=== PATIENT | male | born 1980 | race Two or more races ===

== ENCOUNTER 2023-11-05 17:32 | Inpatient (IN) | payer MEDICARE, OTHER ==
[~2023-11-05] VITALS: Ht 170.2 cm; Wt 78.1 kg
[~2023-11-05 17:32] MED LIST: AMLO-258 PO; AMLO10TA55 PO; CALC0.2521 PO; CALC667C PO; CARV3 PO; CLON0.1T2 PO; FOLI0.8T54 PO; HYDR50TA37 PO; SEVE800T7 PO
[2023-11-05 19:21] LABS: BASOPHILS % (AUTO) 0.9 % (0.0-2.0); EOSINOPHILS % (AUTO) 5.6 % (1.0-6.0); HEMATOCRIT 32.4 % (41-53); HEMOGLOBIN 10.5 g/dL (13.5-17.5); LYMPHOCYTES # (AUTO) 0.9 K/uL (1.0-4.8); LYMPHOCYTES % (AUTO) 9.3 % (22.0-44.0); MEAN CORPUSCULAR HEMOGLOBIN 31.8 pg (26.0-34.0); MEAN CORPUSCULAR HGB CONC 32.4 G/dL (31.0-37.0); MEAN CORPUSCULAR VOLUME 98 fL (80-100); MONOCYTES # (AUTO) 1.4 K/uL (0.1-1.0); MONOCYTES % (AUTO) 15.5 % (2.0-9.0); NEUTROPHILS # (AUTO) 6.3 K/uL (1.8-7.7); NEUTROPHILS % (AUTO) 68.7 % (40.0-70.0); PLATELET COUNT (AUTO) 134 K/uL (150-450); RED CELL DISTRIBUTION WIDTH 19.3 % (11.5-14.5); WHITE BLOOD COUNT (AUTO) 9.2 K/uL (4.5-11.0)
[2023-11-05 19:38] LABS: ALBUMIN 2.9 g/dL (3.4-5.0); BILIRUBIN,DIRECT 0.3 mg/dL (0.00-0.20); BILIRUBIN,TOTAL 0.6 mg/dL (0.1-1.0); CALCIUM, TOTAL 9.8 mg/dL (8.8-10.5); CREATININE 13.48 mg/dL (0.60-1.30)
[2023-11-05 19:45] LABS: POTASSIUM 6.9 mmol/L (3.5-5.1)
[2023-11-05 19:46] LABS: TROPONIN I-HIGH SENSITIVITY 140 ng/L (<76)
[2023-11-05] MEDS: MORPHINE SULFATE 4 MG/ML SYRINGE IVP ONE (19:57)
[2023-11-05] MEDS: SODIUM ZIRCONIUM CYCLOSILICATE 5 GM POWDER PACKET PO ONE (19:58)
[2023-11-05] MEDS: CALCIUM GLUCONATE 100 MG/ML 10 ML IVP ONE (20:14)
[2023-11-05] MEDS ORDERED: 0.9% SODIUM CHLORIDE 15 ML NEB SOLUTION NEB ONE (20:22)
[2023-11-05] MEDS: ALBUTEROL SULFATE 2.5 MG/0.5 ML NEB SOLUTION NEB ONE (20:24)
[2023-11-05 20:34] VITALS: PULSE 79; RESP 17; O2SAT 93
[2023-11-05 20:36] VITALS: PULSE 79; RESP 17; O2SAT 93
[2023-11-05] MEDS: DEXTROSE 50%-WATER 25 GM/50 ML SYRINGE IVP ONE (20:39)
[2023-11-05 20:56] LABS: GLUCOMETER DEV NAME(LOC) ER.7; GLUCOSE,POINT OF CARE 82 MG/DL (70-110)
[2023-11-05] MEDS: INSULIN REGULAR, HUMAN 100 UNITS/ML IVP ONE (21:35)
[2023-11-05 21:46] LABS: GLUCOMETER DEV NAME(LOC) ER.7; GLUCOSE,POINT OF CARE 100 MG/DL (70-110)
[2023-11-05] MEDS: MORPHINE SULFATE 2 MG/ML SYRINGE IVP ONE (23:17)
[2023-11-05 23:30] VITALS: BP 169/119; PULSE 80; RESP 18; TEMP 97; O2SAT 95
[2023-11-05 23:55] VITALS: BP 155/103; PULSE 73; RESP 18
[2023-11-06] VITALS (17 sets, daily range): BP systolic 149–190; BP diastolic 95–122; PULSE 80–88; RESP 18–22; TEMP 97.2–98.2; O2SAT 95–100
[2023-11-06] MEDS: CloNIDine HCL 0.1 MG TABLET PO ONE (01:40)
[2023-11-06] MEDS: MORPHINE SULFATE 2 MG/ML SYRINGE IVP ONE (05:24)
[2023-11-06 08:15] LABS: CALCIUM, TOTAL 9.4 mg/dL (8.8-10.5); CREATININE 9.11 mg/dL (0.60-1.30); POTASSIUM 4.3 mmol/L (3.5-5.1)
[2023-11-06 08:19] LABS: PHOSPHORUS 5.9 mg/dL (2.5-4.9)
[2023-11-06] MEDS: CloNIDine HCL 0.1 MG TABLET PO SCH (08:39)
[2023-11-06] MEDS: AmLODIPine BESYLATE 10 MG TABLET PO SCH (08:39)
[2023-11-06] MEDS: CARVEDILOL 3.125 MG TABLET PO SCH (08:39)
[2023-11-06] MEDS: FOLIC ACID/VIT B COMPLEX AND C TABLET PO SCH (10:19)
[2023-11-06] MEDS: SEVELAMER CARBONATE 800 MG TABLET PO SCH (10:19)
[2023-11-06] MEDS: CALCIUM ACETATE 667 MG CAPSULE PO SCH (10:19)
[2023-11-06] MEDS ORDERED: LIDOCAINE/PF 1% 2 ML VIAL IM ONE ×2 (12:00)
[2023-11-06] MEDS ORDERED: DiphenhydrAMINE HCL 50 MG/ML VIAL IVP ONE (12:00)
[2023-11-06] MEDS: CALCITRIOL 0.25 MCG CAPSULE PO SCH (12:29)
[2023-11-06] MEDS: HYDROmorphone HCL 2 MG/ML SYRINGE IVP PRN (12:29)
[2023-11-06] MEDS: HydrALAZINE HCL 50 MG TABLET PO SCH (12:31)
[2023-11-06] MEDS: OxyCODONE HCL/ACETAMINOPHEN 5-325 MG TABLET PO PRN (13:31)
[2023-11-06] MEDS: DiphenhydrAMINE HCL 50 MG/ML VIAL IVP PRN (14:44)
[2023-11-06] MEDS: LIDOCAINE/PF 1% 2 ML VIAL ID PRN (17:52)
[2023-11-06] MEDS: MORPHINE SULFATE 2 MG/ML SYRINGE IVP PRN (20:23)
[2023-11-07] VITALS (7 sets, daily range): BP systolic 135–173; BP diastolic 93–119; PULSE 78–85; RESP 18–20; TEMP 97.5–98.2; O2SAT 92–100
[2023-11-07] MEDS: DiphenhydrAMINE HCL 25 MG CAPSULE PO ONE (00:46)
[2023-11-08] VITALS (8 sets, daily range): BP systolic 145–174; BP diastolic 82–114; PULSE 67–77; RESP 18; TEMP 97.5–98.7; O2SAT 96–98
[2023-11-08 07:19] LABS: HEMOGLOBIN 11.1 g/dL (13.5-17.5); NEUTROPHILS # (AUTO) 3.7 K/uL (1.8-7.7)
[2023-11-08 07:32] LABS: CALCIUM, TOTAL 9.8 mg/dL (8.8-10.5); CREATININE 10.88 mg/dL (0.60-1.30); POTASSIUM 5.7 mmol/L (3.5-5.1)
[2023-11-08 08:02] LABS: EOSINOPHILS % (AUTO) 6.6 % (1.0-6.0); LYMPHOCYTES % (AUTO) 14.3 % (22.0-44.0); MEAN CORPUSCULAR HEMOGLOBIN 31.8 pg (26.0-34.0); MEAN CORPUSCULAR HGB CONC 32.8 G/dL (31.0-37.0); MEAN CORPUSCULAR VOLUME 97 fL (80-100); MONOCYTES # (AUTO) 1.6 K/uL (0.1-1.0); MONOCYTES % (AUTO) 23.1 % (2.0-9.0); PLATELET COUNT (AUTO) 123 K/uL (150-450); WHITE BLOOD COUNT (AUTO) 6.8 K/uL (4.5-11.0)
[2023-11-08] MEDS: HYDROmorphone HCL 2 MG/ML SYRINGE IVP PRN (08:41)
[2023-11-08] MEDS: INSULIN REGULAR, HUMAN 100 UNITS/ML SQ ONE (10:15)
[2023-11-08] MEDS: DEXTROSE 50%-WATER 25 GM/50 ML SYRINGE IVP ONE (10:15)
[2023-11-08] MEDS: BUMETANIDE 0.25 MG/ML 4 ML VIAL IVP ONE (12:33)
[2023-11-08] MEDS: HydrALAZINE HCL 20 MG/ML VIAL IVP PRN (12:57)
[2023-11-08] MEDS: SODIUM ZIRCONIUM CYCLOSILICATE 5 GM POWDER PACKET PO SCH (13:32)
[2023-11-09] VITALS (15 sets, daily range): BP systolic 150–205; BP diastolic 72–122; PULSE 73–92; RESP 18–20; TEMP 97.4–98.3; O2SAT 95–98
[2023-11-09 07:46] LABS: CALCIUM, TOTAL 10.1 mg/dL (8.8-10.5); CREATININE 12.37 mg/dL (0.60-1.30); POTASSIUM 5.3 mmol/L (3.5-5.1)
[2023-11-09] MEDS: CloNIDine HCL 0.1 MG TABLET PO SCH (08:41)
[2023-11-09] MEDS ORDERED: SODIUM CHLORIDE 0.9% 2,000 ML ONE (10:08)
[2023-11-09] MEDS ORDERED: DiphenhydrAMINE HCL 50 MG/ML VIAL IVP ONE (12:00)
[2023-11-09] MEDS ORDERED: LIDOCAINE/PF 1% 2 ML VIAL IM ONE (12:00)
[2023-11-09 12:29] LABS: TROPONIN I-HIGH SENSITIVITY 154 ng/L (<76)
[2023-11-09] MEDS: HydrALAZINE HCL 50 MG TABLET PO SCH (16:00)
[2023-11-09] MEDS: CARVEDILOL 6.25 MG TABLET PO SCH (20:17)
[2023-11-10 03:53] VITALS: BP 146/88; PULSE 87; RESP 19; TEMP 98.2; O2SAT 97
[2023-11-10 06:08] VITALS: BP 189/102; PULSE 63; RESP 20; O2SAT 96
[2023-11-10 07:50] VITALS: BP 162/116; PULSE 67
[2023-11-10 07:53] LABS: BASOPHILS % (AUTO) 1.6 % (0.0-2.0); EOSINOPHILS % (AUTO) 9.5 % (1.0-6.0); HEMATOCRIT 33.2 % (41-53); HEMOGLOBIN 10.9 g/dL (13.5-17.5); LYMPHOCYTES % (AUTO) 16.6 % (22.0-44.0); MEAN CORPUSCULAR HEMOGLOBIN 31.8 pg (26.0-34.0); MEAN CORPUSCULAR HGB CONC 32.8 G/dL (31.0-37.0); MEAN CORPUSCULAR VOLUME 97 fL (80-100); MONOCYTES # (AUTO) 1.1 K/uL (0.1-1.0); MONOCYTES % (AUTO) 18.5 % (2.0-9.0); NEUTROPHILS # (AUTO) 3.3 K/uL (1.8-7.7); NEUTROPHILS % (AUTO) 53.8 % (40.0-70.0); PLATELET COUNT (AUTO) 152 K/uL (150-450); RED BLOOD CELL COUNT(AUTO) 3.43 MIL/uL (4.50-5.90); RED CELL DISTRIBUTION WIDTH 19.2 % (11.5-14.5); WHITE BLOOD COUNT (AUTO) 6.1 K/uL (4.5-11.0)
[2023-11-10 08:12] LABS: CALCIUM, TOTAL 10.1 mg/dL (8.8-10.5); CREATININE 9.78 mg/dL (0.60-1.30); POTASSIUM 4.7 mmol/L (3.5-5.1)
[2023-11-10] MEDS: ISOSORBIDE DINITRATE 10 MG TABLET PO SCH (08:30)
[2023-11-10] MEDS: HydrALAZINE HCL 25 MG TABLET PO SCH (08:32)
[2023-11-10 11:12] VITALS: BP 163/73; PULSE 70; RESP 18; TEMP 97.4; O2SAT 96
[2023-11-10] MEDS ORDERED: ISOS10TA16 PO (13:07)
[2023-11-10] MEDS ORDERED: SODI5POW3 PO (13:07)
[2023-11-10] MEDS ORDERED: CLON0.1T2 PO (13:07)
[2023-11-10] MEDS ORDERED: AMLO-258 PO (13:07)
[2023-11-10] MEDS ORDERED: CARV6 PO (13:07)
[2023-11-10] MEDS ORDERED: PHOSLOC PO (13:07)
[2023-11-10] MEDS ORDERED: HYDR50TA36 PO (13:07)
== END 2023-11-10 18:10 | disposition home or self-care (01) | DRG 640 ==
LOC: EMS 17:32 → EDH 11-06 07:06 → 5S 11-06 09:47
PROVIDERS: ADMIT Internal Medicine; ATTEND Internal Medicine
PROC: 5A1D70Z Performance of Urinary Filtration, Intermittent, Less than 6 Hours Per Day (ICD-10-PCS; principal; 2023-11-06)
PROC: 5A1D70Z Performance of Urinary Filtration, Intermittent, Less than 6 Hours Per Day (ICD-10-PCS; 2023-11-09)
PROC: 0W9G3ZZ Drainage of Peritoneal Cavity, Percutaneous Approach (ICD-10-PCS; 2023-11-10)
DX: E87.5 Hyperkalemia (principal); I50.43 Acute on chronic combined systolic (congestive) and diastolic (congestive) heart failure; N18.6 End stage renal disease; J96.01 Acute respiratory failure with hypoxia; I13.2 Hypertensive heart and chronic kidney disease with heart failure and with stage 5 chronic kidney disease, or end stage renal disease; R18.8 Other ascites; K74.60 Unspecified cirrhosis of liver; E11.649 Type 2 diabetes mellitus with hypoglycemia without coma; D63.1 Anemia in chronic kidney disease; E11.22 Type 2 diabetes mellitus with diabetic chronic kidney disease; I08.1 Rheumatic disorders of both mitral and tricuspid valves; I16.0 Hypertensive urgency; F17.210 Nicotine dependence, cigarettes, uncomplicated; Z91.199 Patient's noncompliance with other medical treatment and regimen due to unspecified reason; Z99.2 Dependence on renal dialysis; Z79.899 Other long term (current) drug therapy
CPT/HCPCS: 49083; 71045; 76942; 80048; 80076; 82962; 83735; 83880; 84100; 84132; 84484; 85025; 85379; 87340; 90935; 93005; 93306; 99291; J0360; J0610; J1170; J1200; J1815; J2270; J3490; J7030; 36415-L1; 36415-TC; J7613

== ENCOUNTER 2023-11-19 17:12 | Inpatient (IN) | payer MEDICARE, OTHER ==
[~2023-11-19] VITALS: Ht 167.6 cm; Wt 66.6 kg
[~2023-11-19 17:12] MED LIST changes: -AMLO10TA55 PO; -CALC667C PO; -CARV3 PO; +CARV6 PO; +HYDR50TA36 PO; -HYDR50TA37 PO; +ISOS10TA16 PO; +PHOSLOC PO; +SODI5POW3 PO
[2023-11-19] MEDS ORDERED: 0.9% SODIUM CHLORIDE 10 ML SYRINGE IVP PRN (18:00)
[2023-11-19 18:29] LABS: HEMATOCRIT 35.8 % (41-53); HEMOGLOBIN 11.4 g/dL (13.5-17.5); LYMPHOCYTES # (AUTO) 1.1 K/uL (1.0-4.8); LYMPHOCYTES % (AUTO) 9.4 % (22.0-44.0); MEAN CORPUSCULAR HEMOGLOBIN 30.3 pg (26.0-34.0); MEAN CORPUSCULAR HGB CONC 31.8 G/dL (31.0-37.0); MEAN CORPUSCULAR VOLUME 95 fL (80-100); MONOCYTES # (AUTO) 1.5 K/uL (0.1-1.0); NEUTROPHILS # (AUTO) 8.3 K/uL (1.8-7.7); NEUTROPHILS % (AUTO) 73.6 % (40.0-70.0); PLATELET COUNT (AUTO) 349 K/uL (150-450); RED BLOOD CELL COUNT(AUTO) 3.76 MIL/uL (4.50-5.90); RED CELL DISTRIBUTION WIDTH 18.2 % (11.5-14.5); WHITE BLOOD COUNT (AUTO) 11.3 K/uL (4.5-11.0)
[2023-11-19 18:43] LABS: ANION GAP 16 mmol/L (8-16); CALCIUM, TOTAL 9.8 mg/dL (8.8-10.5); CARBON DIOXIDE 26 mmol/L (22-29); CHLORIDE 94 mmol/L (98-107); CREATININE 9.59 mg/dL (0.60-1.30); GLOMERULAR FILTR. RATE CALC 6 mL/min (>60); GLUCOSE,RANDOM 93 mg/dL (70-110); POTASSIUM 4.9 mmol/L (3.5-5.1); SODIUM SERUM 136 mmol/L (136-145); UREA NITROGEN, BLOOD 51 mg/dL (7-18)
[2023-11-19] MEDS: ONDANSETRON HCL 4 MG/2 ML VIAL IVP ONE ×2 (18:43→21:17)
[2023-11-19] MEDS: MORPHINE SULFATE 4 MG/ML SYRINGE IVP ONE (18:43)
[2023-11-19 18:54] LABS: ALANINE AMINOTRANSFERASE 23 U/L (12-78); ALBUMIN 3.5 g/dL (3.4-5.0); ALKALINE PHOSPHATASE 188 U/L (46-116); ASPARTATE AMINOTRANSFERASE 30 U/L (15-37); BILIRUBIN,TOTAL 0.7 mg/dL (0.1-1.0); CREATINE KINASE, TOTAL ONLY 110 U/L (39-308); TOTAL PROTEIN, SERUM 8.3 g/dL (6.4-8.2)
[2023-11-19 18:55] LABS: B-TYPE NATRIURETIC PEPTIDE > 5000 pg/mL (0-100)
[2023-11-19 18:59] LABS: TROPONIN I-HIGH SENSITIVITY 136 ng/L (<76)
[2023-11-19] MEDS: LABETALOL HCL 5 MG/ML 20 ML VIAL IVP ONE (18:59)
[2023-11-19] MEDS: SODIUM CHLORIDE 0.9% 250 ML IV ONE (19:00)
[2023-11-19] MEDS: OXYMETAZOLINE HCL 0.05% 15 ML NASAL SPRAY NASAL ONE (19:18)
[2023-11-19 19:25] LABS: COVID AG,FIA SOURCE NASAL SWAB
[2023-11-19] MEDS ORDERED: 0.9% SODIUM CHLORIDE 5 ML NEB SOLUTION NEB ONE (19:29)
[2023-11-19 19:46] LABS: INFLUENZA TYPE A NEGATIVE FOR TYPE A (NEGATIVE); INFLUENZA TYPE B NEGATIVE FOR TYPE B (NEGATIVE); SARS-COV2 (COVID) ANTIGEN,FIA Negative (Negative)
[2023-11-19] MEDS: LEVALBUTEROL 0.63 MG/3 ML NEB SOLUTION NEB ONE (20:03)
[2023-11-19 20:07] VITALS: PULSE 105; PULSE 93; RESP 22; O2SAT 93
[2023-11-19 20:18] VITALS: PULSE 110; RESP 22; O2SAT 99
[2023-11-19] MEDS: PIPERACILLIN/TAZO 3.375 GM/D5W 50 ML IV ONE (20:32)
[2023-11-19] MEDS: HYDROmorphone HCL 2 MG/ML SYRINGE IVP ONE (21:17)
[2023-11-19] MEDS ORDERED: NALOXONE HCL 1 MG/ML 2 ML SYRINGE IVP PRN (22:30)
[2023-11-19 22:33] LABS: TROPONIN I-HIGH SENSITIVITY 147 ng/L (<76)
[2023-11-19] MEDS: CARVEDILOL 6.25 MG TABLET PO ONE (22:41)
[2023-11-19] MEDS: ISOSORBIDE DINITRATE 10 MG TABLET PO ONE (22:41)
[2023-11-19] MEDS: HydrALAZINE HCL 25 MG TABLET PO ONE (22:42)
[2023-11-19] MEDS ORDERED: PIPERACILLIN SODIUM/TAZOBACTAM 0.75 GM in DEXTROSE 5%-WATER 50 ML IV PRN (23:45)
[2023-11-20] VITALS (14 sets, daily range): BP systolic 133–191; BP diastolic 65–120; PULSE 84–97; RESP 17–20; TEMP 96.8–98.6; O2SAT 95–100
[2023-11-20 06:58] LABS: EOSINOPHILS % (AUTO) 6.3 % (1.0-6.0); HEMOGLOBIN 10.9 g/dL (13.5-17.5); LYMPHOCYTES # (AUTO) 0.9 K/uL (1.0-4.8); LYMPHOCYTES % (AUTO) 11.9 % (22.0-44.0); MEAN CORPUSCULAR HEMOGLOBIN 30.7 pg (26.0-34.0); MEAN CORPUSCULAR HGB CONC 32.1 G/dL (31.0-37.0); MEAN CORPUSCULAR VOLUME 96 fL (80-100); MONOCYTES # (AUTO) 1.5 K/uL (0.1-1.0); MONOCYTES % (AUTO) 21.1 % (2.0-9.0); NEUTROPHILS # (AUTO) 4.4 K/uL (1.8-7.7); NEUTROPHILS % (AUTO) 59.7 % (40.0-70.0); PLATELET COUNT (AUTO) 291 K/uL (150-450); RED BLOOD CELL COUNT(AUTO) 3.56 MIL/uL (4.50-5.90); RED CELL DISTRIBUTION WIDTH 18.6 % (11.5-14.5); WHITE BLOOD COUNT (AUTO) 7.3 K/uL (4.5-11.0)
[2023-11-20 07:16] LABS: CALCIUM, TOTAL 9.4 mg/dL (8.8-10.5); CREATININE 10.51 mg/dL (0.60-1.30); MAGNESIUM 2.3 mg/dL (1.80-2.40); POTASSIUM 4.9 mmol/L (3.5-5.1)
[2023-11-20] MEDS: SEVELAMER CARBONATE 800 MG TABLET PO SCH (08:08)
[2023-11-20] MEDS: PIPERACILLIN SODIUM/TAZOBACTAM 2.25 GM in DEXTROSE 5%-WATER 50 ML IV SCH ×2 (08:08→18:52)
[2023-11-20] MEDS: CALCIUM ACETATE 667 MG CAPSULE PO SCH (08:08)
[2023-11-20] MEDS: CARVEDILOL 6.25 MG TABLET PO SCH (08:09)
[2023-11-20] MEDS: AmLODIPine BESYLATE 10 MG TABLET PO SCH (08:09)
[2023-11-20] MEDS: HydrALAZINE HCL 25 MG TABLET PO SCH (08:09)
[2023-11-20] MEDS: FOLIC ACID/VIT B COMPLEX AND C TABLET PO SCH (08:09)
[2023-11-20] MEDS: CloNIDine HCL 0.1 MG TABLET PO SCH (08:09)
[2023-11-20] MEDS: SODIUM ZIRCONIUM CYCLOSILICATE 5 GM POWDER PACKET PO SCH (08:10)
[2023-11-20] MEDS: ISOSORBIDE DINITRATE 10 MG TABLET PO SCH (08:10)
[2023-11-20] MEDS: CALCITRIOL 0.25 MCG CAPSULE PO SCH (08:11)
[2023-11-20] MEDS ORDERED: -POST HEMODIALYSIS NOTE- MISC SCH (09:00)
[2023-11-20] MEDS: ONDANSETRON HCL 4 MG/2 ML VIAL IVP PRN (09:38)
[2023-11-20] MEDS ORDERED: SODIUM CHLORIDE 0.9% 2,000 ML ONE (14:34)
[2023-11-20] MEDS ORDERED: DiphenhydrAMINE HCL 50 MG/ML VIAL IVP PRN (15:30)
[2023-11-20] MEDS ORDERED: DiphenhydrAMINE HCL 50 MG/ML VIAL IM ONE (22:46)
[2023-11-20] MEDS ORDERED: LIDOCAINE/PF 1% 2 ML VIAL CAUDAL ONE (22:46)
[2023-11-21] VITALS: BP 166/90; PULSE 87; RESP 19; O2SAT 98
[2023-11-21] MEDS: HEPARIN SODIUM,PORCINE 5,000 UNITS/ML VIAL SQ SCH
[2023-11-21 04:30] VITALS: BP 152/99; PULSE 83; RESP 19; O2SAT 100
[2023-11-21 08:25] LABS: ALBUMIN 2.8 g/dL (3.4-5.0); BILIRUBIN,TOTAL 0.7 mg/dL (0.1-1.0); CALCIUM, TOTAL 8.9 mg/dL (8.8-10.5); CREATININE 8.23 mg/dL (0.60-1.30); POTASSIUM 4.3 mmol/L (3.5-5.1); TOTAL PROTEIN, SERUM 7.2 g/dL (6.4-8.2)
[2023-11-21 08:33] LABS: HEMATOCRIT 33.4 % (41-53); HEMOGLOBIN 10.8 g/dL (13.5-17.5); LYMPHOCYTES # (AUTO) 0.8 K/uL (1.0-4.8); LYMPHOCYTES % (AUTO) 13.7 % (22.0-44.0); MEAN CORPUSCULAR HGB CONC 32.4 G/dL (31.0-37.0); MEAN CORPUSCULAR VOLUME 96 fL (80-100); MONOCYTES # (AUTO) 1.4 K/uL (0.1-1.0); MONOCYTES % (AUTO) 25.9 % (2.0-9.0); NEUTROPHILS # (AUTO) 2.6 K/uL (1.8-7.7); NEUTROPHILS % (AUTO) 46.4 % (40.0-70.0); PLATELET COUNT (AUTO) 280 K/uL (150-450); RED CELL DISTRIBUTION WIDTH 18.3 % (11.5-14.5); WHITE BLOOD COUNT (AUTO) 5.6 K/uL (4.5-11.0)
[2023-11-21] MEDS ORDERED: LEVO250T75 PO (10:06)
[2023-11-21] MEDS: LEVOFLOXACIN 500 MG TABLET PO ONE (11:01)
[2023-11-21] MEDS: ACETAMINOPHEN 325 MG TABLET PO PRN (11:01)
[2023-11-21] MEDS ORDERED: ISOSORBIDE DINITRATE 20 MG TABLET PO SCH (16:00)
== END 2023-11-21 13:40 | disposition home or self-care (01) | DRG 871 ==
LOC: EMS 17:15 → EDH 22:18 → 5S 23:41
PROVIDERS: ADMIT Internal Medicine; ATTEND Internal Medicine
PROC: 5A1D70Z Performance of Urinary Filtration, Intermittent, Less than 6 Hours Per Day (ICD-10-PCS; principal; 2023-11-20)
DX: A41.9 Sepsis, unspecified organism (principal); J69.0 Pneumonitis due to inhalation of food and vomit; N18.6 End stage renal disease; I12.0 Hypertensive chronic kidney disease with stage 5 chronic kidney disease or end stage renal disease; R18.8 Other ascites; E78.5 Hyperlipidemia, unspecified; K52.9 Noninfective gastroenteritis and colitis, unspecified; R79.89 Other specified abnormal findings of blood chemistry; R74.8 Abnormal levels of other serum enzymes; K74.60 Unspecified cirrhosis of liver; D63.1 Anemia in chronic kidney disease; Z20.822 Contact with and (suspected) exposure to COVID-19; Z99.2 Dependence on renal dialysis; Z83.3 Family history of diabetes mellitus; Z91.041 Radiographic dye allergy status; Z79.899 Other long term (current) drug therapy
CPT/HCPCS: 71045; 74176; 80048; 80053; 82550; 83605; 83735; 83880; 84145; 84484; 85025; 87040; 87081; 87340; 87804; 90935; 93005; 94640; 99285; J1171; J1200; J1644; J2270; J2405; J2543; J3490; J7030; J7050; J7060; 36415-L1; 36415-TC; Z7610

== ENCOUNTER → 2023-12-02 | Emergency (ER) | payer MEDICARE, OTHER ==
[~2023-12-02] VITALS: Ht 170.2 cm; Wt 64.0 kg
[~2023-12-02] MED LIST changes: -ISOS10TA16 PO; +ISOS20TA9 PO; +LEVO250T75 PO
[2023-12-02 11:56] VITALS: BP 184/121; PULSE 94; RESP 20; TEMP 98.4; O2SAT 99
[2023-12-02 12:53] LABS: BASOPHILS % (AUTO) 0.7 % (0.0-2.0); EOSINOPHILS % (AUTO) 8.2 % (1.0-6.0); HEMATOCRIT 35.4 % (41-53); HEMOGLOBIN 11.5 g/dL (13.5-17.5); LYMPHOCYTES % (AUTO) 12.7 % (22.0-44.0); MEAN CORPUSCULAR HEMOGLOBIN 30.7 pg (26.0-34.0); MEAN CORPUSCULAR HGB CONC 32.5 G/dL (31.0-37.0); MEAN CORPUSCULAR VOLUME 95 fL (80-100); MONOCYTES # (AUTO) 1.1 K/uL (0.1-1.0); MONOCYTES % (AUTO) 13.2 % (2.0-9.0); NEUTROPHILS # (AUTO) 5.3 K/uL (1.8-7.7); NEUTROPHILS % (AUTO) 65.2 % (40.0-70.0); PLATELET COUNT (AUTO) 222 K/uL (150-450); RED BLOOD CELL COUNT(AUTO) 3.75 MIL/uL (4.50-5.90); RED CELL DISTRIBUTION WIDTH 18.4 % (11.5-14.5); WHITE BLOOD COUNT (AUTO) 8.1 K/uL (4.5-11.0)
[2023-12-02 13:17] LABS: CALCIUM, TOTAL 9.1 mg/dL (8.8-10.5); CREATININE 6.88 mg/dL (0.60-1.30); POTASSIUM 4.2 mmol/L (3.5-5.1)
[2023-12-02 13:24] LABS: ALBUMIN 3.4 g/dL (3.4-5.0); BILIRUBIN,TOTAL 0.6 mg/dL (0.1-1.0); TOTAL PROTEIN, SERUM 8.1 g/dL (6.4-8.2)
== END | disposition home or self-care (01) ==
LOC: EMS 11:47
DX: T82.838A Hemorrhage due to vascular prosthetic devices, implants and grafts, initial encounter (principal); F12.90 Cannabis use, unspecified, uncomplicated; N18.6 End stage renal disease; Z91.041 Radiographic dye allergy status; Z88.8 Allergy status to other drugs, medicaments and biological substances; Z99.2 Dependence on renal dialysis; Z79.899 Other long term (current) drug therapy; Y84.1 Kidney dialysis as the cause of abnormal reaction of the patient, or of later complication, without mention of misadventure at the time of the procedure
CPT/HCPCS: 80053; 85025; 86850; 86900; 86901; 99283

== ENCOUNTER 2024-01-27 23:17 | Emergency (ER) | payer MEDICARE, OTHER ==
[~2024-01-27] VITALS: Ht 170.2 cm; Wt 60.2 kg
[~2024-01-27 23:17] MED LIST changes: -AMLO-258 PO; +AMLO10TA55 PO; +CALC667C PO; +CARV12.530 PO; -CARV6 PO; +FLUT1AER IH; -FOLI0.8T54 PO; -HYDR50TA36 PO; +HYDR50TA37 PO; +ISOS20 PO; -ISOS20TA9 PO; -LEVO250T75 PO; +ONDA4 PO; -PHOSLOC PO; -SODI5POW3 PO
[2024-01-27 23:50] VITALS: TEMP 97.7
[2024-01-28 00:32] VITALS: BP 167/81; PULSE 83; RESP 18; O2SAT 98
== END 2024-01-28 01:45 | disposition home or self-care (01) ==
LOC: EMS 23:17
DX: T82.838A Hemorrhage due to vascular prosthetic devices, implants and grafts, initial encounter (principal); J44.9 Chronic obstructive pulmonary disease, unspecified; I13.2 Hypertensive heart and chronic kidney disease with heart failure and with stage 5 chronic kidney disease, or end stage renal disease; I50.9 Heart failure, unspecified; N18.6 End stage renal disease; F12.90 Cannabis use, unspecified, uncomplicated; F17.210 Nicotine dependence, cigarettes, uncomplicated; Z88.8 Allergy status to other drugs, medicaments and biological substances; Z91.041 Radiographic dye allergy status; Z79.51 Long term (current) use of inhaled steroids; Z79.899 Other long term (current) drug therapy; Y84.1 Kidney dialysis as the cause of abnormal reaction of the patient, or of later complication, without mention of misadventure at the time of the procedure
CPT/HCPCS: 99281; Z7502

== ENCOUNTER 2024-01-31 20:16 | Inpatient (IN) | payer MEDICARE, OTHER ==
[~2024-01-31] VITALS: Ht 170.2 cm; Wt 55.5 kg
[2024-01-31] MEDS: MORPHINE SULFATE 4 MG/ML SYRINGE IVP ONE (21:44)
[2024-01-31] MEDS: DiphenhydrAMINE HCL 50 MG/ML VIAL IVP ONE (21:44)
[2024-01-31 21:54] LABS: BASOPHILS % (AUTO) 1.2 % (0.0-2.0); EOSINOPHILS % (AUTO) 5.9 % (1.0-6.0); HEMATOCRIT 29.9 % (41-53); HEMOGLOBIN 9.6 g/dL (13.5-17.5); LYMPHOCYTES # (AUTO) 1.3 K/uL (1.0-4.8); LYMPHOCYTES % (AUTO) 13.9 % (22.0-44.0); MEAN CORPUSCULAR HEMOGLOBIN 30.1 pg (26.0-34.0); MEAN CORPUSCULAR HGB CONC 32.2 G/dL (31.0-37.0); MEAN CORPUSCULAR VOLUME 94 fL (80-100); MONOCYTES # (AUTO) 1.2 K/uL (0.1-1.0); MONOCYTES % (AUTO) 12.5 % (2.0-9.0); NEUTROPHILS # (AUTO) 6.4 K/uL (1.8-7.7); NEUTROPHILS % (AUTO) 66.5 % (40.0-70.0); PLATELET COUNT (AUTO) 271 K/uL (150-450); RED CELL DISTRIBUTION WIDTH 19.2 % (11.5-14.5); WHITE BLOOD COUNT (AUTO) 9.7 K/uL (4.5-11.0)
[2024-01-31 22:03] LABS: ANION GAP 13 mmol/L (8-16); CALCIUM, TOTAL 9.1 mg/dL (8.8-10.5); CARBON DIOXIDE 30 mmol/L (22-29); CHLORIDE 97 mmol/L (98-107); CREATININE 11.43 mg/dL (0.60-1.30); GLOMERULAR FILTR. RATE CALC 5 mL/min (>60); GLUCOSE,RANDOM 97 mg/dL (70-110); SODIUM SERUM 140 mmol/L (136-145); UREA NITROGEN, BLOOD 89 mg/dL (7-18)
[2024-01-31 22:06] LABS: PROTHROMBIN TIME 16.4 SEC (9.4-11.6)
[2024-01-31 22:12] LABS: LACTIC ACID 0.5 mmol/L (0.4-2.0)
[2024-01-31 22:16] LABS: AMMONIA 33 umol/L (11-32); POTASSIUM 6.4 mmol/L (3.5-5.1)
[2024-01-31 22:17] LABS: B-TYPE NATRIURETIC PEPTIDE 3400 pg/mL (0-100)
[2024-01-31 22:20] LABS: TROPONIN I-HIGH SENSITIVITY 122 ng/L (<76)
[2024-01-31 22:21] LABS: LIPASE 675 U/L (16-77)
[2024-01-31] MEDS: SODIUM ZIRCONIUM CYCLOSILICATE 5 GM POWDER PACKET PO ONE (22:30)
[2024-01-31] MEDS ORDERED: ALBUTEROL SULFATE 2.5 MG/0.5 ML NEB SOLUTION NEB PRN (23:30)
[2024-01-31] MEDS: HEPARIN SODIUM,PORCINE 5,000 UNITS/ML VIAL SQ SCH (23:32)
[2024-02-01] VITALS (12 sets, daily range): BP systolic 148–171; BP diastolic 87–109; PULSE 82–101; RESP 18; TEMP 98; O2SAT 94–95
[2024-02-01] MEDS: OxyCODONE HCL/ACETAMINOPHEN 5-325 MG TABLET PO PRN (00:29)
[2024-02-01] MEDS: CloNIDine HCL 0.1 MG TABLET PO PRN (00:29)
[2024-02-01 02:13] LABS: TROPONIN I-HIGH SENSITIVITY 126 ng/L (<76)
[2024-02-01] MEDS: ACETAMINOPHEN 325 MG TABLET PO PRN (02:52)
[2024-02-01] MEDS: HydrALAZINE HCL 20 MG/ML VIAL IVP PRN (02:52)
[2024-02-01] MEDS: ZOLPIDEM TARTRATE 5 MG TABLET PO PRN (02:52)
[2024-02-01] MEDS: DiphenhydrAMINE HCL 50 MG/ML VIAL IVP ONE (03:17)
[2024-02-01] MEDS: MORPHINE SULFATE 4 MG/ML SYRINGE IVP ONE (03:17)
[2024-02-01] MEDS: ONDANSETRON HCL 4 MG/2 ML VIAL IVP PRN (05:43)
[2024-02-01] MEDS: LORazepam 2 MG/ML VIAL IVP ONE (06:26)
[2024-02-01] MEDS: DOCUSATE SODIUM 100 MG CAPSULE PO SCH (08:35)
[2024-02-01] MEDS: FAMOTIDINE 20 MG TABLET PO SCH (08:35)
[2024-02-01] MEDS: AmLODIPine BESYLATE 10 MG TABLET PO SCH (08:35)
[2024-02-01] MEDS ORDERED: DiphenhydrAMINE HCL 50 MG/ML VIAL IVP ONE (12:00)
[2024-02-01] MEDS: CALCITRIOL 0.25 MCG CAPSULE PO SCH (20:18)
[2024-02-01] MEDS: CARVEDILOL 6.25 MG TABLET PO SCH (20:18)
[2024-02-02 03:09] VITALS: BP 162/98; PULSE 95; RESP 18; TEMP 98; O2SAT 95
[2024-02-02] MEDS: DiphenhydrAMINE HCL 25 MG CAPSULE PO PRN (03:26)
[2024-02-02 07:50] VITALS: BP 161/102; PULSE 80; RESP 18; TEMP 98.2; O2SAT 96
[2024-02-02] MEDS: SEVELAMER CARBONATE 800 MG TABLET PO SCH (08:07)
[2024-02-02] MEDS: MORPHINE SULFATE 2 MG/ML SYRINGE IVP ONE (09:46)
[2024-02-02] MEDS ORDERED: VANCOMYCIN 1GM/WATER(PEG/NADA) 200 ML IV PRN (14:15)
[2024-02-02 14:33] LABS: CALCIUM, TOTAL 8.7 mg/dL (8.8-10.5); CREATININE 9.02 mg/dL (0.60-1.30); POTASSIUM 5.6 mmol/L (3.5-5.1)
[2024-02-02] MEDS: SODIUM ZIRCONIUM CYCLOSILICATE 5 GM POWDER PACKET PO SCH (15:17)
[2024-02-02 15:36] VITALS: BP 167/93; PULSE 87; RESP 18; TEMP 98.5; O2SAT 97
[2024-02-02] MEDS: VANCOMYCIN 1GM/WATER(PEG/NADA) 200 ML IV ONE (16:27)
[2024-02-02 17:22] VITALS: BP 150/91; PULSE 71; RESP 18; TEMP 98.1; O2SAT 96
[2024-02-02 19:22] VITALS: BP 150/92; PULSE 80; RESP 18; TEMP 97.6; O2SAT 96
[2024-02-02] MEDS: HydrALAZINE HCL 10 MG TABLET PO SCH (20:13)
[2024-02-03] VITALS (13 sets, daily range): BP systolic 150–190; BP diastolic 95–118; PULSE 74–90; RESP 18; TEMP 97–98.2; O2SAT 96–98
[2024-02-03] MEDS ORDERED: SODIUM CHLORIDE 0.9% 2,000 ML ONE (08:55)
[2024-02-03] MEDS: EPOETIN ALFA 10,000 UNITS/ML 2 ML VIAL SQ SCH (09:00)
[2024-02-03 12:28] LABS: CALCIUM, TOTAL 8.6 mg/dL (8.8-10.5); CREATININE 5.23 mg/dL (0.60-1.30); POTASSIUM 3.6 mmol/L (3.5-5.1)
[2024-02-03] MEDS: SEVELAMER CARBONATE 800 MG TABLET PO SCH (13:38)
[2024-02-03] MEDS ORDERED: CeFAZolin 1 GM/DEXTROSE 50 ML IV SCH (16:00)
[2024-02-03] MEDS ORDERED: VANCOMYCIN 1GM/WATER(PEG/NADA) 200 ML IV PRN (16:00)
[2024-02-04 06:38] VITALS: BP 180/100; PULSE 78; RESP 18; TEMP 98.1; O2SAT 100
[2024-02-04 06:41] LABS: BASOPHILS % (AUTO) 0.9 % (0.0-2.0); EOSINOPHILS % (AUTO) 6.3 % (1.0-6.0); HEMATOCRIT 32.1 % (41-53); HEMOGLOBIN 10.9 g/dL (13.5-17.5); MEAN CORPUSCULAR HEMOGLOBIN 31.6 pg (26.0-34.0); MEAN CORPUSCULAR HGB CONC 33.8 G/dL (31.0-37.0); MEAN CORPUSCULAR VOLUME 94 fL (80-100); MONOCYTES # (AUTO) 0.9 K/uL (0.1-1.0); MONOCYTES % (AUTO) 14.7 % (2.0-9.0); NEUTROPHILS # (AUTO) 3.9 K/uL (1.8-7.7); NEUTROPHILS % (AUTO) 62.1 % (40.0-70.0); PLATELET COUNT (AUTO) 206 K/uL (150-450); RED BLOOD CELL COUNT(AUTO) 3.43 MIL/uL (4.50-5.90); WHITE BLOOD COUNT (AUTO) 6.2 K/uL (4.5-11.0)
[2024-02-04 07:13] LABS: ALBUMIN 3.2 g/dL (3.4-5.0); BILIRUBIN,TOTAL 0.7 mg/dL (0.1-1.0); CALCIUM, TOTAL 9.5 mg/dL (8.8-10.5); CREATININE 8.66 mg/dL (0.60-1.30); POTASSIUM 4.3 mmol/L (3.5-5.1); TOTAL PROTEIN, SERUM 8.3 g/dL (6.4-8.2); VANCOMYCIN,RANDOM 13.2 mcg/mL (25.0-50.0)
[2024-02-04] MEDS: VANCOMYCIN 750 MG/WATER(PEG) 150 ML IV ONE (08:37)
[2024-02-04 08:41] VITALS: BP 185/117; PULSE 79; RESP 18; TEMP 98.3; O2SAT 100
[2024-02-04 10:30] VITALS: BP 172/118; PULSE 76; RESP 18; O2SAT 100
[2024-02-04] MEDS ORDERED: DiphenhydrAMINE HCL 50 MG/ML VIAL IM ONE (12:31)
[2024-02-04] MEDS ORDERED: LIDOCAINE/PF 1% 2 ML VIAL CAUDAL ONE (12:31)
[2024-02-04 14:36] VITALS: BP 168/98; PULSE 78; RESP 18; O2SAT 100
[2024-02-04 19:56] VITALS: BP 143/98; PULSE 85; RESP 20; TEMP 98; O2SAT 95
[2024-02-05] VITALS (13 sets, daily range): BP systolic 155–187; BP diastolic 85–114; PULSE 68–91; RESP 18–20; TEMP 97.2–98.6; O2SAT 92–97
[2024-02-05] MEDS ORDERED: SODIUM CHLORIDE 0.9% 1,000 ML ONE (07:33)
[2024-02-05] MEDS: CefTRIAXone SODIUM 2 GM in DEXTROSE 5%-WATER 50 ML IV SCH (13:49)
[2024-02-05] MEDS ORDERED: INDIUM IN-111 OXYQUINOLINE/.5MCL ISOTOPE 1 EA INJ INJ ONE (14:30)
[2024-02-05] MEDS ORDERED: LIDOCAINE/PF 1% 2 ML VIAL CAUDAL ONE (14:35)
[2024-02-05] MEDS ORDERED: DiphenhydrAMINE HCL 50 MG/ML VIAL IM ONE (14:35)
[2024-02-05] MEDS: MetroNIDAZOLE 500 MG TABLET PO SCH (17:14)
[2024-02-06] VITALS (8 sets, daily range): BP systolic 155–187; BP diastolic 72–120; PULSE 72–82; RESP 18; TEMP 97.7–98.1; O2SAT 96–100
[2024-02-06] MEDS: HydrALAZINE HCL 10 MG TABLET PO ONE (11:12)
[2024-02-06] MEDS: HydrALAZINE HCL 25 MG TABLET PO SCH (11:13)
[2024-02-06] MEDS: ISOSORBIDE DINITRATE 20 MG TABLET PO SCH (16:01)
[2024-02-06] MEDS: CARVEDILOL 12.5 MG TABLET PO SCH (20:19)
[2024-02-07 04:10] VITALS: BP 157/97; PULSE 65; RESP 18; TEMP 97.7; O2SAT 98
[2024-02-07 08:02] VITALS: BP 167/107; PULSE 66; RESP 18; TEMP 97.7; O2SAT 100
[2024-02-07 09:53] VITALS: BP 148/90; PULSE 77; RESP 18; O2SAT 100
[2024-02-07] MEDS: FOLIC ACID/VIT B COMPLEX AND C TABLET PO SCH (15:22)
[2024-02-07 15:39] VITALS: BP 163/93; PULSE 73; RESP 18; TEMP 97.8; O2SAT 99
[2024-02-07 18:37] VITALS: BP 162/95; PULSE 72; RESP 18
[2024-02-07 19:33] VITALS: BP 160/97; PULSE 72; RESP 20; TEMP 97.6; O2SAT 97
[2024-02-08] VITALS (14 sets, daily range): BP systolic 131–178; BP diastolic 77–117; PULSE 69–80; RESP 18–20; TEMP 97.6–98; O2SAT 96–98
[2024-02-08] MEDS ORDERED: SODIUM CHLORIDE 0.9% 1,000 ML ONE (09:50)
[2024-02-08] MEDS: LIDOCAINE/PF 1% 2 ML VIAL ID PRN (13:19)
[2024-02-08] MEDS: DiphenhydrAMINE HCL 50 MG/ML VIAL IVP PRN (13:20)
[2024-02-08] MEDS ORDERED: LIDOCAINE/PF 1% 2 ML VIAL IM ONE (16:52)
[2024-02-08] MEDS ORDERED: HEPARIN SODIUM,PORCINE 1,000 UNITS/ML VIAL IVP ONE (16:52)
[2024-02-09 03:35] VITALS: BP 143/55; PULSE 74; RESP 20; TEMP 97.8; O2SAT 97
[2024-02-09 08:00] VITALS: BP 175/108
[2024-02-09 10:02] VITALS: BP 145/95; PULSE 79; RESP 19; TEMP 98.4; O2SAT 100
[2024-02-09] MEDS ORDERED: SODI5POW3 PO (11:33)
[2024-02-09 16:03] VITALS: BP 152/99; PULSE 73; RESP 18; TEMP 97.9; O2SAT 98
[2024-02-09 20:23] VITALS: BP 165/104; PULSE 76; RESP 20; TEMP 98; O2SAT 97
[2024-02-10] VITALS (12 sets, daily range): BP systolic 155–178; BP diastolic 76–111; PULSE 70–82; RESP 18; TEMP 97.6–97.9; O2SAT 96–100
[2024-02-10] MEDS ORDERED: SODIUM CHLORIDE 0.9% 2,000 ML ONE (08:35)
== END 2024-02-10 15:05 | disposition home or self-care (01) | DRG 291 ==
LOC: EMS 20:16 → EDH 23:39 → 4E 02-01 17:18
PROVIDERS: ADMIT Internal Medicine; ATTEND Internal Medicine
PROC: 5A1D70Z Performance of Urinary Filtration, Intermittent, Less than 6 Hours Per Day (ICD-10-PCS; 2024-02-01)
PROC: 0W9G3ZZ Drainage of Peritoneal Cavity, Percutaneous Approach (ICD-10-PCS; principal; 2024-02-02)
PROC: 5A1D70Z Performance of Urinary Filtration, Intermittent, Less than 6 Hours Per Day (ICD-10-PCS; 2024-02-03)
PROC: 5A1D70Z Performance of Urinary Filtration, Intermittent, Less than 6 Hours Per Day (ICD-10-PCS; 2024-02-05)
PROC: 5A1D70Z Performance of Urinary Filtration, Intermittent, Less than 6 Hours Per Day (ICD-10-PCS; 2024-02-08)
PROC: 5A1D70Z Performance of Urinary Filtration, Intermittent, Less than 6 Hours Per Day (ICD-10-PCS; 2024-02-10)
DX: I13.2 Hypertensive heart and chronic kidney disease with heart failure and with stage 5 chronic kidney disease, or end stage renal disease (principal); I50.43 Acute on chronic combined systolic (congestive) and diastolic (congestive) heart failure; N18.6 End stage renal disease; R18.8 Other ascites; R78.81 Bacteremia; D68.9 Coagulation defect, unspecified; Z59.00 Homelessness unspecified; K74.60 Unspecified cirrhosis of liver; I42.9 Cardiomyopathy, unspecified; D63.1 Anemia in chronic kidney disease; J44.9 Chronic obstructive pulmonary disease, unspecified; E87.5 Hyperkalemia; E11.22 Type 2 diabetes mellitus with diabetic chronic kidney disease; E83.39 Other disorders of phosphorus metabolism; K21.9 Gastro-esophageal reflux disease without esophagitis; G25.81 Restless legs syndrome; E11.40 Type 2 diabetes mellitus with diabetic neuropathy, unspecified; K76.9 Liver disease, unspecified; F12.90 Cannabis use, unspecified, uncomplicated; F17.210 Nicotine dependence, cigarettes, uncomplicated; L29.9 Pruritus, unspecified; Z91.199 Patient's noncompliance with other medical treatment and regimen due to unspecified reason; Z79.899 Other long term (current) drug therapy; Z83.3 Family history of diabetes mellitus; Z91.158 Patient's noncompliance with renal dialysis for other reason; Z99.2 Dependence on renal dialysis
CPT/HCPCS: 49083; 71045; 76942; 78806; 80048; 80053; 80202; 82140; 83605; 83690; 83880; 84484; 85025; 85610; 87040; 87070; 87077; 87205; 87340; 90935; 93005; 93306; 99285; A9547; G0378; J0360; J0690; J0696; J0885; J1200; J1644; J2060; J2270; J2405; J3490; J7030; J7060; 36415-L1; 36415-TC

== ENCOUNTER 2024-02-25 21:00 | Inpatient (IN) | payer MEDICARE, OTHER ==
[~2024-02-25] VITALS: Ht 170.2 cm; Wt 66.0 kg
[~2024-02-25 21:00] MED LIST changes: +SODI5POW3 PO
[2024-02-25 22:03] LABS: BASOPHILS % (AUTO) 1.1 % (0.0-2.0); EOSINOPHILS % (AUTO) 5.6 % (1.0-6.0); HEMATOCRIT 31.7 % (41-53); HEMOGLOBIN 10.3 g/dL (13.5-17.5); LYMPHOCYTES # (AUTO) 1.2 K/uL (1.0-4.8); LYMPHOCYTES % (AUTO) 12.9 % (22.0-44.0); MEAN CORPUSCULAR HEMOGLOBIN 30.7 pg (26.0-34.0); MEAN CORPUSCULAR HGB CONC 32.4 G/dL (31.0-37.0); MEAN CORPUSCULAR VOLUME 95 fL (80-100); MONOCYTES % (AUTO) 10.2 % (2.0-9.0); NEUTROPHILS # (AUTO) 6.8 K/uL (1.8-7.7); NEUTROPHILS % (AUTO) 70.2 % (40.0-70.0); PLATELET COUNT (AUTO) 224 K/uL (150-450); RED BLOOD CELL COUNT(AUTO) 3.35 MIL/uL (4.50-5.90); RED CELL DISTRIBUTION WIDTH 19.8 % (11.5-14.5); WHITE BLOOD COUNT (AUTO) 9.7 K/uL (4.5-11.0)
[2024-02-25 22:18] LABS: CALCIUM, TOTAL 8.8 mg/dL (8.8-10.5); CREATININE 13.09 mg/dL (0.60-1.30); POTASSIUM 5.3 mmol/L (3.5-5.1)
[2024-02-25 22:24] LABS: ALBUMIN 3.2 g/dL (3.4-5.0); BILIRUBIN,DIRECT 0.2 mg/dL (0.00-0.20); BILIRUBIN,TOTAL 0.6 mg/dL (0.1-1.0); TOTAL PROTEIN, SERUM 7.9 g/dL (6.4-8.2)
[2024-02-25 22:27] LABS: AMMONIA 27 umol/L (11-32)
[2024-02-25 22:31] LABS: TROPONIN I-HIGH SENSITIVITY 126 ng/L (<76)
[2024-02-25] MEDS: ONDANSETRON HCL 4 MG/2 ML VIAL IVP ONE (22:46)
[2024-02-25] MEDS: HYDROmorphone HCL 2 MG/ML SYRINGE IVP ONE (22:47)
[2024-02-25 23:05] LABS: PROTHROMBIN TIME 11.9 SEC (9.4-11.6)
[2024-02-25] MEDS: HydrALAZINE HCL 20 MG/ML VIAL IVP ONE (23:32)
[2024-02-26] VITALS (11 sets, daily range): BP systolic 138–176; BP diastolic 59–109; PULSE 74–86; RESP 18; TEMP 97.5–97.9; O2SAT 96–100
[2024-02-26] MEDS ORDERED: ONDANSETRON 4 MG TABLET PO PRN
[2024-02-26] MEDS ORDERED: ACETAMINOPHEN 325 MG TABLET PO PRN
[2024-02-26] MEDS ORDERED: ONDANSETRON HCL 4 MG/2 ML VIAL IVP PRN
[2024-02-26] MEDS: HEPARIN SODIUM,PORCINE 5,000 UNITS/ML VIAL SQ SCH
[2024-02-26] MEDS ORDERED: HydrALAZINE HCL 20 MG/ML VIAL IVP PRN
[2024-02-26] MEDS: CARVEDILOL 6.25 MG TABLET PO ONE (00:26)
[2024-02-26] MEDS: ISOSORBIDE DINITRATE 20 MG TABLET PO SCH (00:27)
[2024-02-26] MEDS: BUMETANIDE 0.25 MG/ML 4 ML VIAL IVP ONE (00:27)
[2024-02-26] MEDS: AmLODIPine BESYLATE 10 MG TABLET PO SCH (00:27)
[2024-02-26] MEDS: HYDROmorphone HCL 2 MG/ML SYRINGE IVP ONE ×2 (01:43→10:24)
[2024-02-26 03:13] LABS: TROPONIN I-HIGH SENSITIVITY 131 ng/L (<76)
[2024-02-26] MEDS: DiphenhydrAMINE HCL 50 MG/ML VIAL IVP PRN (03:29)
[2024-02-26] MEDS: HydrALAZINE HCL 20 MG/ML VIAL IVP ONE (03:29)
[2024-02-26] MEDS ORDERED: CloNIDine HCL 0.2 MG TABLET PO PRN (06:15)
[2024-02-26] MEDS: LABETALOL HCL 5 MG/ML 20 ML VIAL IVP ONE (06:44)
[2024-02-26 06:55] LABS: BASOPHILS % (AUTO) 0.9 % (0.0-2.0); EOSINOPHILS % (AUTO) 5.3 % (1.0-6.0); HEMATOCRIT 35.2 % (41-53); HEMOGLOBIN 11.6 g/dL (13.5-17.5); LYMPHOCYTES # (AUTO) 1.3 K/uL (1.0-4.8); LYMPHOCYTES % (AUTO) 15.1 % (22.0-44.0); MEAN CORPUSCULAR HEMOGLOBIN 31.5 pg (26.0-34.0); MEAN CORPUSCULAR HGB CONC 32.9 G/dL (31.0-37.0); MEAN CORPUSCULAR VOLUME 96 fL (80-100); MONOCYTES # (AUTO) 0.9 K/uL (0.1-1.0); MONOCYTES % (AUTO) 10.1 % (2.0-9.0); NEUTROPHILS % (AUTO) 68.6 % (40.0-70.0); PLATELET COUNT (AUTO) 245 K/uL (150-450); RED BLOOD CELL COUNT(AUTO) 3.68 MIL/uL (4.50-5.90); RED CELL DISTRIBUTION WIDTH 19.5 % (11.5-14.5); WHITE BLOOD COUNT (AUTO) 8.8 K/uL (4.5-11.0)
[2024-02-26 07:11] LABS: CREATININE 13.77 mg/dL (0.60-1.30); MAGNESIUM 2.3 mg/dL (1.80-2.40); POTASSIUM 5.5 mmol/L (3.5-5.1)
[2024-02-26] MEDS: DOCUSATE SODIUM 100 MG CAPSULE PO SCH (07:55)
[2024-02-26] MEDS: CARVEDILOL 12.5 MG TABLET PO SCH (08:21)
[2024-02-26] MEDS: CALCIUM ACETATE 667 MG CAPSULE PO SCH (08:21)
[2024-02-26] MEDS: HydrALAZINE HCL 50 MG TABLET PO SCH (08:21)
[2024-02-26] MEDS: SEVELAMER CARBONATE 800 MG TABLET PO SCH (08:21)
[2024-02-26] MEDS: SODIUM ZIRCONIUM CYCLOSILICATE 5 GM POWDER PACKET PO SCH (08:22)
[2024-02-26] MEDS: CALCITRIOL 0.25 MCG CAPSULE PO SCH (08:23)
[2024-02-26] MEDS ORDERED: SODIUM CHLORIDE 0.9% 2,000 ML ONE (10:16)
[2024-02-26] MEDS ORDERED: HYDROmorphone HCL 2 MG/ML SYRINGE IVP PRN (11:45)
[2024-02-26] MEDS ORDERED: LIDOCAINE/PF 1% 2 ML VIAL ID PRN (12:00)
[2024-02-26] MEDS: DiphenhydrAMINE HCL 25 MG CAPSULE PO ONE (12:09)
[2024-02-26] MEDS: DiphenhydrAMINE HCL 50 MG/ML VIAL IVP ONE (12:09)
[2024-02-26] MEDS ORDERED: LIDOCAINE/PF 1% 2 ML VIAL CAUDAL ONE (15:52)
[2024-02-26] MEDS ORDERED: DiphenhydrAMINE HCL 50 MG/ML VIAL IM ONE (15:52)
== END 2024-02-26 15:53 | disposition left against medical advice (07) | DRG 280 ==
LOC: EMS 21:00 → EDH 02-26 00:35 → 5S 02-26 09:50
PROVIDERS: ADMIT Internal Medicine; ATTEND Internal Medicine
PROC: 5A1D70Z Performance of Urinary Filtration, Intermittent, Less than 6 Hours Per Day (ICD-10-PCS; principal; 2024-02-26)
DX: I16.1 Hypertensive emergency (principal); I50.23 Acute on chronic systolic (congestive) heart failure; I21.A1 Myocardial infarction type 2; N18.6 End stage renal disease; K86.1 Other chronic pancreatitis; K76.6 Portal hypertension; N25.81 Secondary hyperparathyroidism of renal origin; R18.8 Other ascites; I13.2 Hypertensive heart and chronic kidney disease with heart failure and with stage 5 chronic kidney disease, or end stage renal disease; L29.9 Pruritus, unspecified; F17.210 Nicotine dependence, cigarettes, uncomplicated; I08.1 Rheumatic disorders of both mitral and tricuspid valves; E11.40 Type 2 diabetes mellitus with diabetic neuropathy, unspecified; E83.39 Other disorders of phosphorus metabolism; D63.1 Anemia in chronic kidney disease; E11.22 Type 2 diabetes mellitus with diabetic chronic kidney disease; G25.81 Restless legs syndrome; K74.60 Unspecified cirrhosis of liver; J44.9 Chronic obstructive pulmonary disease, unspecified; K21.9 Gastro-esophageal reflux disease without esophagitis; Z83.3 Family history of diabetes mellitus; Z99.2 Dependence on renal dialysis; Z79.899 Other long term (current) drug therapy; Z53.29 Procedure and treatment not carried out because of patient's decision for other reasons
CPT/HCPCS: 71045; 80048; 80076; 82140; 83735; 83880; 84484; 85025; 85610; 85730; 90935; 93005; 99291; J0360; J1171; J1200; J2405; J3490; J7030; 36415-L1; 36415-TC

== ENCOUNTER 2024-08-01 08:33 | Inpatient (IN) | payer MEDICARE, OTHER ==
[~2024-08-01] VITALS: Ht 170.2 cm; Wt 69.0 kg
[2024-08-01 09:11] LABS: GLUCOMETER DEV NAME(LOC) ER.7; GLUCOSE,POINT OF CARE 91 MG/DL (70-110)
[2024-08-01 09:21] LABS: BASOPHILS % (AUTO) 1.4 % (0.0-2.0); EOSINOPHILS % (AUTO) 5.1 % (1.0-6.0); HEMATOCRIT 39.7 % (41-53); HEMOGLOBIN 13.2 g/dL (13.5-17.5); MEAN CORPUSCULAR HEMOGLOBIN 33.8 pg (26.0-34.0); MEAN CORPUSCULAR HGB CONC 33.3 G/dL (31.0-37.0); MEAN CORPUSCULAR VOLUME 101 fL (80-100); MONOCYTES # (AUTO) 0.9 K/uL (0.1-1.0); MONOCYTES % (AUTO) 18.6 % (2.0-9.0); NEUTROPHILS # (AUTO) 2.8 K/uL (1.8-7.7); NEUTROPHILS % (AUTO) 54.9 % (40.0-70.0); PLATELET COUNT (AUTO) 233 K/uL (150-450); RED BLOOD CELL COUNT(AUTO) 3.91 MIL/uL (4.50-5.90); RED CELL DISTRIBUTION WIDTH 17.1 % (11.5-14.5)
[2024-08-01 09:24] LABS: RBC MORPHOLOGY COMMENT ABNORMAL RBC MORPH
[2024-08-01 09:33] LABS: CALCIUM, TOTAL 8.4 mg/dL (8.8-10.5); CREATININE 8.6 mg/dL (0.60-1.30); POTASSIUM 4.2 mmol/L (3.5-5.1)
[2024-08-01 09:40] LABS: ALBUMIN 2.9 g/dL (3.4-5.0); BILIRUBIN,DIRECT 0.4 mg/dL (0.00-0.20); TOTAL PROTEIN, SERUM 6.7 g/dL (6.4-8.2)
[2024-08-01] MEDS: DiphenhydrAMINE HCL 50 MG/ML VIAL IVP ONE ×2 (10:22→16:54)
[2024-08-01] MEDS: MORPHINE SULFATE 4 MG/ML SYRINGE IVP ONE (11:08)
[2024-08-01] MEDS ORDERED: CARV25TA32 PO (11:09)
[2024-08-01] MEDS ORDERED: DIPH25TA19 PO (11:09)
[2024-08-01] MEDS ORDERED: SACU1TAB7 PO (11:09)
[2024-08-01] MEDS ORDERED: EMPA10TA3 PO (11:09)
[2024-08-01] MEDS: MORPHINE SULFATE 2 MG/ML SYRINGE IVP ONE (16:01)
[2024-08-01 17:34] VITALS: BP 169/119; PULSE 100; RESP 20; TEMP 97.5; O2SAT 99
[2024-08-01] MEDS: HydrALAZINE HCL 20 MG/ML VIAL IVP PRN (18:28)
[2024-08-01 20:00] VITALS: BP 161/115; PULSE 91; RESP 19; TEMP 97.5; O2SAT 97
[2024-08-01] MEDS: HydrALAZINE HCL 50 MG TABLET PO SCH (20:35)
[2024-08-01] MEDS: carvediloL 25 MG TABLET PO SCH (20:35)
[2024-08-01] MEDS: ISOSORBIDE DINITRATE 20 MG TABLET PO SCH (20:35)
[2024-08-01] MEDS: HYDROmorphone HCL 2 MG/ML SYRINGE IVP PRN (20:35)
[2024-08-01] MEDS: SACUBITRIL/VALSARTAN 49-51 MG TABLET PO SCH (20:35)
[2024-08-01] MEDS: DiphenhydrAMINE HCL 50 MG/ML VIAL IVP PRN (20:36)
[2024-08-02] VITALS (14 sets, daily range): BP systolic 104–159; BP diastolic 71–104; PULSE 77–93; RESP 18; TEMP 97.3–98.2; O2SAT 94–97
[2024-08-02] MEDS: SEVELAMER CARBONATE 800 MG TABLET PO SCH (09:45)
[2024-08-02] MEDS: AmLODIPine BESYLATE 10 MG TABLET PO SCH (09:46)
[2024-08-02] MEDS: EMPAGLIFLOZIN 10 MG TABLET PO SCH (09:46)
[2024-08-02] MEDS: FLUTICASONE/VILANTEROL 100-25 MCG/INH INHALER [14] IH SCH (09:46)
[2024-08-02] MEDS ORDERED: SODIUM CHLORIDE 0.9% 2,000 ML ONE (12:20)
== END 2024-08-02 19:29 | disposition home or self-care (01) | DRG 947 ==
LOC: EMS 08:34 → EDH 10:17 → 5S 17:29
PROVIDERS: ADMIT Hospitalist; ATTEND Hospitalist
PROC: 0W9G3ZZ Drainage of Peritoneal Cavity, Percutaneous Approach (ICD-10-PCS; principal; 2024-08-02)
PROC: 5A1D70Z Performance of Urinary Filtration, Intermittent, Less than 6 Hours Per Day (ICD-10-PCS; 2024-08-02)
DX: R18.8 Other ascites (principal); N18.6 End stage renal disease; K86.1 Other chronic pancreatitis; I13.2 Hypertensive heart and chronic kidney disease with heart failure and with stage 5 chronic kidney disease, or end stage renal disease; N25.81 Secondary hyperparathyroidism of renal origin; I50.22 Chronic systolic (congestive) heart failure; D63.1 Anemia in chronic kidney disease; E11.22 Type 2 diabetes mellitus with diabetic chronic kidney disease; E11.40 Type 2 diabetes mellitus with diabetic neuropathy, unspecified; G25.81 Restless legs syndrome; J44.9 Chronic obstructive pulmonary disease, unspecified; K72.10 Chronic hepatic failure without coma; K21.9 Gastro-esophageal reflux disease without esophagitis; N28.9 Disorder of kidney and ureter, unspecified; E83.39 Other disorders of phosphorus metabolism; Z83.3 Family history of diabetes mellitus; Z99.2 Dependence on renal dialysis; Z79.899 Other long term (current) drug therapy; Z91.041 Radiographic dye allergy status
CPT/HCPCS: 49083; 71045; 76942; 80048; 80076; 82962; 83690; 85025; 85610; 87340; 90935; 93005; 96374; 96375; 96376; 99285; G0378; J0360; J1171; J1200; J2270; J7030; 36415-L1; 36415-TC

== ENCOUNTER 2024-08-17 04:00 | Inpatient (IN) | payer MEDICARE, OTHER ==
[~2024-08-17] VITALS: Ht 177.8 cm; Wt 70.6 kg
[2024-08-17] VITALS (15 sets, daily range): BP systolic 127–188; BP diastolic 86–123; PULSE 78–92; RESP 18–19; TEMP 97.9–98.5; O2SAT 97–98
[~2024-08-17 04:00] MED LIST changes: -CALC0.2521 PO; -CALC667C PO; -CARV12.530 PO; +CARV25TA32 PO; -CLON0.1T2 PO; +DIPH25TA19 PO; +EMPA10TA3 PO; -ONDA4 PO; +SACU1TAB7 PO; -SODI5POW3 PO
[2024-08-17 05:02] LABS: CALCIUM, TOTAL 8.1 mg/dL (8.8-10.5); CREATININE 11.12 mg/dL (0.60-1.30); GLOMERULAR FILTR. RATE CALC 5.0 mL/min (>60); GLUCOSE,RANDOM 89.0 mg/dL (70-110); SODIUM SERUM 140.0 mmol/L (136-145); UREA NITROGEN, BLOOD 72.0 mg/dL (7-18)
[2024-08-17 05:03] LABS: PLATELET COUNT (AUTO) 208 K/uL (150-450); RED BLOOD CELL COUNT(AUTO) 4.41 MIL/uL (4.50-5.90); RED CELL DISTRIBUTION WIDTH 16.5 % (11.5-14.5); WHITE BLOOD COUNT (AUTO) 6.5 K/uL (4.5-11.0)
[2024-08-17 05:08] LABS: RBC MORPHOLOGY COMMENT ABNORMAL RBC MORPH
[2024-08-17 05:17] LABS: ASPARTATE AMINOTRANSFERASE 24.0 U/L (15-37); TOTAL PROTEIN, SERUM 7.0 g/dL (6.4-8.2)
[2024-08-17] MEDS: MORPHINE SULFATE 2 MG/ML SYRINGE IVP ONE (05:51)
[2024-08-17] MEDS: ACETAMINOPHEN 325 MG TABLET PO PRN (10:22)
[2024-08-17] MEDS ORDERED: SODIUM CHLORIDE 0.9% 1,000 ML ONE (10:53)
[2024-08-17] MEDS: MORPHINE SULFATE 2 MG/ML SYRINGE IVP PRN (11:12)
[2024-08-17] MEDS ORDERED: LIDOCAINE/PF 1% 2 ML VIAL ONE (12:00)
[2024-08-17] MEDS: LIDOCAINE/PF 1% 2 ML VIAL ID PRN (17:50)
[2024-08-18 04:51] VITALS: BP 165/105; PULSE 85; RESP 18; TEMP 97.7; O2SAT 94
[2024-08-18 06:34] LABS: PLATELET COUNT (AUTO) 185 K/uL (150-450); RED BLOOD CELL COUNT(AUTO) 4.50 MIL/uL (4.50-5.90); RED CELL DISTRIBUTION WIDTH 16.3 % (11.5-14.5); WHITE BLOOD COUNT (AUTO) 6.3 K/uL (4.5-11.0)
[2024-08-18 06:54] LABS: CALCIUM, TOTAL 8.8 mg/dL (8.8-10.5); CREATININE 8.97 mg/dL (0.60-1.30); GLOMERULAR FILTR. RATE CALC 7.0 mL/min (>60); GLUCOSE,RANDOM 99.0 mg/dL (70-110); SODIUM SERUM 141.0 mmol/L (136-145); UREA NITROGEN, BLOOD 56.0 mg/dL (7-18)
[2024-08-18 07:54] VITALS: BP 156/124; PULSE 80; RESP 19; TEMP 97.3; O2SAT 100
[2024-08-18 10:15] VITALS: BP 152/98; PULSE 79; RESP 19; TEMP 97.8; O2SAT 97
[2024-08-18 10:52] LABS: SPECIMENTYPE,BODY FLUID ASCV
[2024-08-18 11:53] LABS: APPEARANCE,UNSPUN,BODY FLUID HAZY (CLEAR)
[2024-08-18 11:54] LABS: APPEARANCE,SPUN,BODY FLUID CLEAR (CLEAR); BODY FLUID RBC 183.0 /cu. mm.; COLOR,BODY FLUID YELLOW (LT YELLOW); TOTAL VOLUME,BODY FLUID 1400 mL; WBC, BODY FLUID 39 /cu. mm.
[2024-08-18 11:55] LABS: BASOPHILS,BODY FLUID 0 %; EOSINOPHILS,BF (ANAL) 0 %; LYMPHOCYTES,BODY FLUID 38 %; MONOCYTES,BODY FLUID 20 %; NEUTROPHILS,BODY FLUID 42 %
[2024-08-18 11:56] LABS: PH, BODY FLUID 8.0
[2024-08-18 15:40] VITALS: BP 159/118; PULSE 88; RESP 18; TEMP 98.2; O2SAT 100
[2024-08-18] MEDS: FOLIC ACID/VIT B COMPLEX AND C TABLET PO SCH (17:31)
[2024-08-18] MEDS: SEVELAMER CARBONATE 800 MG TABLET PO SCH (17:31)
[2024-08-18 20:00] VITALS: BP 178/107; PULSE 89; RESP 17; TEMP 97.9; O2SAT 98
[2024-08-18 23:50] VITALS: BP 169/104; PULSE 83; RESP 18; TEMP 98.1; O2SAT 95
[2024-08-19] VITALS (14 sets, daily range): BP systolic 148–188; BP diastolic 77–115; PULSE 81–94; RESP 17–20; TEMP 97.7–98.4; O2SAT 97–99
[2024-08-19] MEDS ORDERED: SODIUM CHLORIDE 0.9% 2,000 ML ONE (10:39)
[2024-08-19] MEDS: LIDOCAINE/PF 1% 2 ML VIAL ID PRN (12:53)
[2024-08-19 13:07] LABS: AMYLASE, BODY FLUID,REF 131.0 U/L; GLUCOSE, BODY FLUID,REF 110.0 mg/dL; LDH,BODY FLUID,REF 117.0 IU/L; TOTAL PROTEIN,BODY FLUID,REF 3.6 g/dL; URIC ACID, BODY FLUID,REF 5.2 mg/dL
[2024-08-19] MEDS: SACUBITRIL/VALSARTAN 49-51 MG TABLET PO SCH (14:23)
[2024-08-19] MEDS: ISOSORBIDE DINITRATE 10 MG TABLET PO ONE (14:23)
[2024-08-19] MEDS ORDERED: ISOSORBIDE DINITRATE 20 MG TABLET PO SCH (16:00)
== END 2024-08-19 15:50 | disposition home or self-care (01) | DRG 432 ==
LOC: EMS 04:01 → EDH 07:13 → 5S 08:53
PROVIDERS: ADMIT Hospitalist; ATTEND Hospitalist
PROC: 5A1D70Z Performance of Urinary Filtration, Intermittent, Less than 6 Hours Per Day (ICD-10-PCS; 2024-08-17)
PROC: 0W9G3ZZ Drainage of Peritoneal Cavity, Percutaneous Approach (ICD-10-PCS; principal; 2024-08-18)
PROC: 5A1D70Z Performance of Urinary Filtration, Intermittent, Less than 6 Hours Per Day (ICD-10-PCS; 2024-08-19)
DX: K74.60 Unspecified cirrhosis of liver (principal); I50.23 Acute on chronic systolic (congestive) heart failure; N18.6 End stage renal disease; I13.2 Hypertensive heart and chronic kidney disease with heart failure and with stage 5 chronic kidney disease, or end stage renal disease; R18.8 Other ascites; F17.210 Nicotine dependence, cigarettes, uncomplicated; J44.9 Chronic obstructive pulmonary disease, unspecified; Z99.2 Dependence on renal dialysis; Z83.3 Family history of diabetes mellitus; Z79.899 Other long term (current) drug therapy
CPT/HCPCS: 49083; 71045; 76942; 80048; 80076; 82150; 82570; 82945; 83615; 83690; 83986; 84157; 84560; 85025; 87075; 87205; 88108; 88305; 89051; 90935; 93005; 96374; 96375; 99285; J0360; J1200; J2270; J3490; J7030; 36415-L1; 36415-TC; 87070

== ENCOUNTER 2024-09-25 19:28 | Inpatient (IN) | payer MEDICARE, OTHER ==
[~2024-09-25] VITALS: Ht 170.2 cm; Wt 81.5 kg
[~2024-09-25 19:28] MED LIST changes: -CARV25TA32 PO; +CLON0.1T2 PO; -DIPH25TA19 PO; +FOLI0.8T54 PO; -SACU1TAB7 PO
[2024-09-25 21:04] LABS: PLATELET COUNT (AUTO) 254 K/uL (150-450); RED BLOOD CELL COUNT(AUTO) 3.54 MIL/uL (4.50-5.90); RED CELL DISTRIBUTION WIDTH 16.3 % (11.5-14.5); WHITE BLOOD COUNT (AUTO) 6.9 K/uL (4.5-11.0)
[2024-09-25] MEDS: MORPHINE SULFATE 4 MG/ML SYRINGE IVP ONE (21:07)
[2024-09-25] MEDS: ONDANSETRON HCL 4 MG/2 ML VIAL IVP ONE (21:07)
[2024-09-25 21:08] LABS: CALCIUM, TOTAL 8.1 mg/dL (8.8-10.5); CREATININE 12.73 mg/dL (0.60-1.30); GLOMERULAR FILTR. RATE CALC 4 mL/min (>60); GLUCOSE,RANDOM 104 mg/dL (70-110); SODIUM SERUM 139 mmol/L (136-145)
[2024-09-25 21:13] LABS: UREA NITROGEN, BLOOD 120 mg/dL (7-18)
[2024-09-25 21:20] LABS: LACTIC ACID 0.6 mmol/L (0.4-2.0)
[2024-09-25 21:22] LABS: TROPONIN I-HIGH SENSITIVITY 98 ng/L (<76)
[2024-09-25] MEDS ORDERED: NALOXONE HCL 1 MG/ML 2 ML SYRINGE IVP PRN (22:00)
[2024-09-25] MEDS ORDERED: ACETAMINOPHEN 325 MG TABLET PO PRN (22:00)
[2024-09-25] MEDS: ASPIRIN 81 MG CHEWABLE TABLET PO ONE (22:30)
[2024-09-25] MEDS: LABETALOL HCL 100 MG TABLET PO SCH (22:30)
[2024-09-25] MEDS: DEXTROSE 50%-WATER 25 GM/50 ML SYRINGE IVP ONE (22:30)
[2024-09-25] MEDS: INSULIN REGULAR, HUMAN 100 UNITS/ML IVP ONE (22:30)
[2024-09-25] MEDS: SODIUM ZIRCONIUM CYCLOSILICATE 5 GM POWDER PACKET PO ONE (22:30)
[2024-09-25 23:10] VITALS: PULSE 84; RESP 16; O2SAT 97
[2024-09-25] MEDS: ALBUTEROL SULFATE 2.5 MG/0.5 ML NEB SOLUTION NEB ONE (23:14)
[2024-09-25 23:15] VITALS: PULSE 84; RESP 16; O2SAT 97
[2024-09-25 23:30] VITALS: PULSE 86; RESP 16; O2SAT 99
[2024-09-26] VITALS (13 sets, daily range): BP systolic 116–167; BP diastolic 71–100; PULSE 66–84; RESP 18–20; TEMP 96.4–98.4; O2SAT 95–100
[2024-09-26] MEDS: HEPARIN SODIUM,PORCINE 5,000 UNITS/ML VIAL SQ SCH
[2024-09-26 00:35] LABS: TROPONIN I-HIGH SENSITIVITY 102 ng/L (<76)
[2024-09-26 07:15] LABS: PLATELET COUNT (AUTO) 254 K/uL (150-450); RED BLOOD CELL COUNT(AUTO) 3.50 MIL/uL (4.50-5.90); RED CELL DISTRIBUTION WIDTH 16.3 % (11.5-14.5); WHITE BLOOD COUNT (AUTO) 6.3 K/uL (4.5-11.0)
[2024-09-26 07:19] LABS: CALCIUM, TOTAL 8.2 mg/dL (8.8-10.5); CREATININE 13.17 mg/dL (0.60-1.30); GLOMERULAR FILTR. RATE CALC 4.0 mL/min (>60); GLUCOSE,RANDOM 104.0 mg/dL (70-110); SODIUM SERUM 138.0 mmol/L (136-145)
[2024-09-26 07:56] LABS: UREA NITROGEN, BLOOD 122.0 mg/dL (7-18)
[2024-09-26] MEDS: DOCUSATE SODIUM 100 MG CAPSULE PO SCH (08:47)
[2024-09-26] MEDS: SEVELAMER CARBONATE 800 MG TABLET PO SCH (08:47)
[2024-09-26] MEDS: FOLIC ACID/VIT B COMPLEX AND C TABLET PO SCH (08:47)
[2024-09-26] MEDS: EMPAGLIFLOZIN 10 MG TABLET PO SCH (08:48)
[2024-09-26] MEDS: FLUTICASONE/VILANTEROL 100-25 MCG/INH INHALER [14] IH SCH (08:48)
[2024-09-26] MEDS: ISOSORBIDE DINITRATE 20 MG TABLET PO SCH (08:48)
[2024-09-26] MEDS ORDERED: LIDOCAINE/PF 1% 2 ML VIAL CAUDAL ONE (16:28)
[2024-09-26] MEDS: ONDANSETRON HCL 4 MG/2 ML VIAL IVP PRN (20:03)
[2024-09-26] MEDS: ASPIRIN 81 MG CHEWABLE TABLET PO SCH (20:15)
[2024-09-27 00:30] VITALS: BP 138/88; PULSE 80; RESP 18; TEMP 97.5; O2SAT 97
[2024-09-27 03:50] VITALS: BP 138/87; PULSE 79; RESP 18; TEMP 97.9; O2SAT 97
[2024-09-27 05:51] LABS: PLATELET COUNT (AUTO) 234 K/uL (150-450); RED BLOOD CELL COUNT(AUTO) 3.48 MIL/uL (4.50-5.90); RED CELL DISTRIBUTION WIDTH 16.4 % (11.5-14.5); WHITE BLOOD COUNT (AUTO) 6.3 K/uL (4.5-11.0)
[2024-09-27 06:37] LABS: CALCIUM, TOTAL 8.6 mg/dL (8.8-10.5); CREATININE 10.64 mg/dL (0.60-1.30); GLOMERULAR FILTR. RATE CALC 5.0 mL/min (>60); GLUCOSE,RANDOM 90.0 mg/dL (70-110); SODIUM SERUM 135.0 mmol/L (136-145); UREA NITROGEN, BLOOD 90.0 mg/dL (7-18)
[2024-09-27 08:00] VITALS: BP 150/94; PULSE 82; RESP 18; TEMP 97.2; O2SAT 97
[2024-09-27 11:20] VITALS: BP 147/90; RESP 18; TEMP 97.7; O2SAT 98
[2024-09-27 15:47] VITALS: BP 104/66; PULSE 80; RESP 18; TEMP 98; O2SAT 96
[2024-09-27 20:11] VITALS: BP 126/91; PULSE 86; RESP 19; TEMP 97.7; O2SAT 95
[2024-09-28] VITALS (11 sets, daily range): BP systolic 123–166; BP diastolic 67–95; PULSE 62–82; RESP 17–20; TEMP 97.3–97.8; O2SAT 96–99
[2024-09-28] MEDS ORDERED: SODIUM CHLORIDE 0.9% 1,000 ML ONE (09:04)
[2024-09-28] MEDS ORDERED: LIDOCAINE/PF 1% 2 ML VIAL ONE (12:00)
[2024-09-28] MEDS ORDERED: LABE100T51 PO (12:58)
[2024-09-28] MEDS ORDERED: ASPI-1450 PO (12:58)
== END 2024-09-28 15:40 | disposition home or self-care (01) | DRG 432 ==
LOC: EMS 19:33 → EDH 21:52 → CMPBEDREQ 22:54 → 5S 23:36
PROVIDERS: ADMIT Internal Medicine; ATTEND Internal Medicine
PROC: 5A1D70Z Performance of Urinary Filtration, Intermittent, Less than 6 Hours Per Day (ICD-10-PCS; 2024-09-26)
PROC: 0W9G3ZZ Drainage of Peritoneal Cavity, Percutaneous Approach (ICD-10-PCS; principal; 2024-09-27)
PROC: 5A1D70Z Performance of Urinary Filtration, Intermittent, Less than 6 Hours Per Day (ICD-10-PCS; 2024-09-28)
DX: K74.60 Unspecified cirrhosis of liver (principal); K85.90 Acute pancreatitis without necrosis or infection, unspecified; N18.6 End stage renal disease; R18.8 Other ascites; I13.2 Hypertensive heart and chronic kidney disease with heart failure and with stage 5 chronic kidney disease, or end stage renal disease; I50.42 Chronic combined systolic (congestive) and diastolic (congestive) heart failure; K86.1 Other chronic pancreatitis; D63.1 Anemia in chronic kidney disease; E11.22 Type 2 diabetes mellitus with diabetic chronic kidney disease; E78.5 Hyperlipidemia, unspecified; J45.909 Unspecified asthma, uncomplicated; E87.5 Hyperkalemia; F17.210 Nicotine dependence, cigarettes, uncomplicated; Z79.82 Long term (current) use of aspirin; Z79.84 Long term (current) use of oral hypoglycemic drugs; Z79.899 Other long term (current) drug therapy; Z83.3 Family history of diabetes mellitus; Z99.2 Dependence on renal dialysis; Z91.199 Patient's noncompliance with other medical treatment and regimen due to unspecified reason
CPT/HCPCS: 49083; 71045; 76942; 80048; 82140; 83605; 83615; 83690; 83735; 83880; 84484; 85025; 85610; 87040; 87081; 87340; 90935; 93005; 94640; 96374; 96375; 99285; J0360; J1171; J1200; J1644; J1815; J2270; J2405; J3490; J7030; 36415-L1; 36415-TC; J7613

== ENCOUNTER → 2024-11-22 | Outpatient (CLI) | payer MEDICARE, OTHER ==
[~2024-11-22] MED LIST changes: +ASPI-1450 PO; +HYDR-4061 PO; +LABE100T51 PO
== END | disposition home or self-care (01) ==
LOC: RADMN 07:54
PROVIDERS: ATTEND Internal Medicine
DX: R18.8 Other ascites (principal)
CPT/HCPCS: 49083; C1729; 76942